=== PATIENT | female | born 1925 | race Caucasian/White ===

== ENCOUNTER 2016-10-21 21:37 | Observation (INO) | payer OTHER ==
--- NOTE | ~2016-10-21 | HP ---
Unit #: [id number] #: [id number] Patient: VIKY EVERETT [id number] [address] [address] [id number] I MR#: [id number] NAME: VIKY EVERETT. ROOM: 79098 Age: 89 Sex: F Admission Date: 10/22/2016 : 1925 Attending Physician: Amelia Plunkett M.D. Primary Care Physician: No Primary Care Physician HISTORY AND PHYSICAL CHIEF COMPLAINT Right inferior and superior pubic ramus fracture, following a fall. HISTORY This barb 89-year-old female with hypertension, AODM, some memory loss, is admitted for a right pelvic fracture. The patient states that she was sleeping on the cough, got up and remembers falling but does not really remember what occurred. She was able to call he daughter I believe, and she was brought to this emergency department late last evening. X-rays demonstrate a right superior and inferior pubic ramus fracture. The patient was able to stand but was unable to bear weight, right leg secondary to severe pain. PAST MEDICAL HISTORY 1. Hypertension. 2. AODM. 3. Hyperlipidemia. 4. Dementia. 5. Cholecystectomy. 6. Possible cervical laminectomy. ALLERGIES Tetanus vaccine. HOME MEDICATIONS Januvia 100 mg daily; HCTZ 12.5 mg daily; Lipitor 40 mg daily; glipizide ER 10 mg daily; metformin 500 mg b.i.d.; olmesartan 20 mg daily; Welchol 625 mg b.i.d. FAMILY HISTORY Noncontributory given patient's age. SOCIAL HISTORY The patient lives alone, her 4 or 5 months ago. She is a lifelong nonsmoker. Does not drink alcohol. REVIEW OF SYSTEMS Notable for hypertension, diabetes, hyperlipidemia, above mentioned surgeries, fall, pain in the back with movement of the right hip. All other systems were reviewed and are negative. Patient does have memory loss. PHYSICAL EXAMINATION Unit #: [id number] #: [id number] Patient: IVKY EVERETT GENERAL: Barb 89-year-old female, currently in no acute distress. VITAL SIGNS: Temperature 98, pulse 78, respirations 16, blood pressure 171/52, O2 saturation is 98% on room air. HEENT: Eyes - PERRLA, extraocular muscles are intact. Pharynx is benign. NECK: Supple without adenopathy or thyromegaly. CHEST: Clear. CARDIAC: Normal S1 and S2 without S3, S4, or murmur. ABDOMEN: Bowel sounds are present. No hepatosplenomegaly, tenderness or masses. EXTREMITIES: Without clubbing, cyanosis or edema. Pedal pulses are present. Movement of the right hip causes back pain. NEUROLOGIC: Patient is awake, alert and oriented to person and place but does not know the year or date. Cranial nerves are intact. Equal strength throughout. DIAGNOSTIC STUDIES LABS: None are yet drawn. IMAGING STUDIES: C-spine x-ray - advanced DJD. CT of the brain - mild atrophy. Small vessel ischemic disease but nothing acute. Plain x-rays of the hip and femur show right superior and inferior pubic ramus fracture. ASSESSMENT 1. Fall with right inferior and superior pubic ramus fracture, unable to ambulate. 2. AODM. 3. Hypertension. 4. Dementia. 5. Hyperlipidemia. PLANS 1. Check labs, EKG, and urinalysis. 2. IV fluids and supportive treatment. 3. DVT prophylaxis. 4. Social work to consult for prison placement with rehab. 5. Orthopedic surgery to consult. Dictated by Amelia Plunkett M.D. AML/ts TD: 10/22/2016 05:06 JOB #: [id number] CC: Denise Palma M.D. Unit #: [id number] #: [id number] Patient: VIKY EVERETT HISTORY AND PHYSICAL X Amelia Plunkett MD X HISTORY AND PHYSICAL
--- NOTE | ~2016-10-21 | CR107 ---
[facility] A Service of [facility] RADIOLOGY TEXT RESULTS PATIENT: VIKY EVERETT LOCATION: [facility] [address] : [birth year] UNIT #: [id number] AGE: [address]: Nabor Virgen MD SEX: F ORDER DR: [id number] [facility] [address] [facility]. [place], [place] [address] [id number] I MR#: [id number] Acc #: [id number] NAME: VIKY EVERETT. : 1925 SEX: F STUDY DATE/TIME: 10/21/2016 21:26 UNIT: CED ROOM: 77334 STUDY DESCRIPTION: CR Femur 2 Views Rt Attending Physician: Nabor Virgen M.D. Ordering Physician: Roger Upton Aprn Primary Care Physician: Primary Care Physician No MEDICAL IMAGING REPORT This report is preliminary unless electronic signature is present EXAM Right femur HISTORY Femur pain since 10/21/2016 1830 hours. FINDINGS Standard views of the right femur demonstrate no femoral fracture. Minimal degenerative changes right hip. Visualized pelvis suggests a right superior pubic ramus fracture. Please see separate pelvic films for additional details. Soft tissues demonstrate extensive arterial vascular calcifications. Mild degenerative changes noted within the right knee. Dictated by... Henna Gillespie M.D. THIS IS AN ELECTRONICALLY VERIFIED REPORT Henna Gillespie M.D. at 10/22/2016 6:33 PM LORENA/cecilia TD: 10/22/2016 10:16 JOB #: [id number] MEDICAL IMAGING REPORT COPY
--- NOTE | ~2016-10-21 | CT71 ---
[facility] A Service of [facility] RADIOLOGY TEXT RESULTS PATIENT: VIKY EVERETT LOCATION: [facility] [address] : [birth year] UNIT #: [id number] AGE: [address]: Nabor Virgen MD SEX: F ORDER DR: [id number] [place] [id number] [facility]. [place], [place] [address] [id number] I MR#: [id number] Acc #: [id number] NAME: VIKY EVERETT. : 1925 SEX: F STUDY DATE/TIME: 10/21/2016 21:37 UNIT: CEDOF ROOM: 36102 STUDY DESCRIPTION: CT Head Wo Contrast Attending Physician: Nabor Virgen M.D. Ordering Physician: Roger Upton Aprn Primary Care Physician: Primary Care Physician No MEDICAL IMAGING REPORT This report is preliminary unless electronic signature is present EXAM CT head without contrast, 10/21/2016 HISTORY 89-year-old female with head pain status post fall today. Memory loss. COMPARISON CT head, 07/18/2010 TECHNIQUE Routine unenhanced axial images performed through the brain. This CT exam was performed with one or more of the following radiation dose reduction techniques: automatic exposure control, adjustment of mA and/or kV according to patient size, and iterative reconstruction. FINDINGS No hemorrhage, acute infarction, mass lesion, or abnormal extraaxial fluid collection. No midline shift or focal mass effect. Ventricular system normal in size and configuration. Mild generalized atrophy. Mild chronic small vessel disease is unchanged. No acute bony abnormality. Visualized paranasal sinuses and mastoid air cells are clear. IMPRESSION 1. No acute intracranial abnormality. 2. Mild age-related atrophy and chronic small vessel disease, stable. Dictated by... Graham Ledbetter M.D. THIS IS AN ELECTRONICALLY VERIFIED REPORT Graham Ledbetter M.D. at 10/22/2016 6:49 PM BOBBY/lady [facility] A Service of [facility] RADIOLOGY TEXT RESULTS PATIENT: VIKY EVERETT LOCATION: [facility] [address] : [birth year] UNIT #: [id number] AGE: [address]: Nabor Virgen MD SEX: F ORDER DR: TD: 10/22/2016 10:00 JOB #: [id number] MEDICAL IMAGING REPORT COPY
--- NOTE | ~2016-10-21 | EKG ---
PATIENT: VIKY EVERETT UNIT #: [id number] Ventricular Rate: 88 BPM Atrial Rate: 88 BPM P-R Interval: 228 ms QRS Duration: 94 ms Q-T Interval: 376 ms QTC Calculation(Bezet): 454 ms P Nunnelly: 85 degrees Calculated R Nunnelly: -21 degrees Calculated T Nunnelly: 69 degrees Diagnosis Line: Sinus rhythm with 1st degree A-V block Diagnosis Line: Nonspecific T wave abnormality Diagnosis Line: Abnormal ECG Diagnosis Line: When compared with ECG of 22-MAR-2011 22:52, Diagnosis Line: Nonspecific T wave abnormality now evident in Diagnosis Line: Inferior leads Diagnosis Line: Confirmed by KESHIA BAUER MD ([id number]) on Diagnosis Line: 10/23/2016 11:23:23 AM INTERPRETING MD: JUANCARLOS FINLEY
--- NOTE | ~2016-10-21 | CT52 ---
[facility] A Service of [facility] RADIOLOGY TEXT RESULTS PATIENT: VIKY EVERETT LOCATION: [facility] [address] : [birth year] UNIT #: [id number] AGE: [address]: Nabor Virgen MD SEX: F ORDER DR: [id number] [facility] [address] [facility]. [place], [place] [address] [id number] I MR#: [id number] Acc #: [id number] NAME: VIKY EVERETT. : 1925 SEX: F STUDY DATE/TIME: 10/21/2016 21:44 UNIT: CEDOF ROOM: 48712 STUDY DESCRIPTION: CT Cervical Spine Wo Cont Attending Physician: Nabor Virgen M.D. Ordering Physician: Roger Upton Aprn Primary Care Physician: Primary Care Physician No MEDICAL IMAGING REPORT This report is preliminary unless electronic signature is present EXAM CT cervical spine without contrast, 10/21/2016 HISTORY 89-year-old female with neck pain status post fall today. COMPARISON None TECHNIQUE Helical scan performed through the cervical spine without IV contrast. Coronal and sagittal reformatted images. This CT exam was performed with one or more of the following radiation dose reduction techniques: automatic exposure control, adjustment of mA and/or kV according to patient size, and iterative reconstruction. FINDINGS No evidence of acute fracture or subluxation. Vertebral body heights and alignment are normally maintained. Prevertebral soft tissues are normal. Atlantoaxial relationship is normal. Cervicothoracic junction is unremarkable. There are advanced multilevel discogenic degenerative changes producing mild central canal stenosis at multiple levels. There is moderate multilevel facet degeneration. There is degenerative callus formation noted around the dens. Paravertebral soft tissues are unremarkable. Incidental scanning through the lung apices is unremarkable. IMPRESSION 1. No acute cervical spine injury. 2. Advanced multilevel degenerative changes, detailed above. Dictated by... [facility] A Service of [facility] RADIOLOGY TEXT RESULTS PATIENT: VIKY EVERETT LOCATION: [facility] [address] : [birth year] UNIT #: [id number] AGE: [address]: Nabor Virgen MD SEX: F ORDER DR: Graham Ledbetter M.D. THIS IS AN ELECTRONICALLY VERIFIED REPORT Graham Ledbetter M.D. at 10/22/2016 6:49 PM BOBBY/lady TD: 10/22/2016 10:04 JOB #: [id number] MEDICAL IMAGING REPORT COPY
--- NOTE | ~2016-10-21 | DS ---
Unit #: [id number] #: [id number] Patient: VIKY EVERETT [id number] [address] [address] [id number] I MR#: [id number] NAME: VIKY EVERETT. ROOM: [facility] Age: 89 Sex: F Admission Date: 10/22/2016 : 1925 Discharge Date: 10/24/2016 Attending Physician: Nabor Virgen M.D. Primary Care Physician: No Primary Care Physician DISCHARGE SUMMARY DIAGNOSIS ON ADMISSION Pelvic fracture. DIAGNOSES ON DISCHARGE 1. Right superior and inferior pubic ramus fracture. 2. Acute urinary tract infection. 3. Dementia. 4. Hyperlipidemia. 5. Type 2 diabetes mellitus. 6. Hypertension. 7. Acute Escherichia coli urinary tract infection. DIAGNOSTIC STUDIES LABS: The patient's creatinine is 1, sodium 135, potassium 4.2. WBC is 10.7, hemoglobin 10.9, platelet count 194. Urine culture revealed E-coli greater than 1,000 colonies. IMAGING: The patient had a CT scan of head done, which did not reveal any acute intracranial abnormality. The patient had a CT scan of cervical spine done, which did not reveal any acute cervical spine injury. The patient had a right femur x-ray done, which did not reveal any femur fracture. There was minimal degenerative change of right hip present. The patient had a right hip x-ray done, which revealed superior and inferior pubic ramus fracture. HOSPITAL COURSE This 89-year-old patient was admitted to [facility] with a fall. Details are as per admission H and P. Pubic ramus, right pelvic fracture. The patient was seen by ortho in consultation. Advised to follow up on an outpatient basis in 4 weeks. Acute urinary tract infection. The patient was treated with antibiotics and doing much better. Acute toxic metabolic encephalopathy. The patient's confusion is much better now. It was secondary to acute UTI and fall. PHYSICAL EXAMINATION GENERAL: Today, the patient is comfortable, is not in any acute distress. Unit #: [id number] #: [id number] Patient: VIKY EVERETT She wants to go home. VITAL SIGNS: Vital signs reveal temperature of 99.3, pulse 98 per minute, respiratory rate 16 per minute, blood pressure 153/59. HEENT: Examination revealed no conjunctival congestion. Sclera is nonicteric. NECK: Neck is supple. Trachea is central. RESPIRATORY: Examination revealed decreased breath sounds bilaterally. There are no wheezes or crackles. HEART: Regular rate and rhythm. S1, S2. ABDOMEN: Abdomen is soft, nontender. Bowel sounds are present in all 4 quadrants. NEUROLOGIC: Strength is 4+ bilaterally. PSYCHIATRIC: The patient is alert to person and place only. SKIN: Skin is warm and dry. CONDITION Stable. ACTIVITIES As tolerated. DISCHARGE MEDICATIONS 1. Benicar 20 mg p.o. daily. 2. Januvia 100 mg p.o. daily. 3. Welchol 625 mg p.o. b.i.d. 4. Colace 100 mg p.o. b.i.d. 5. Milk of Magnesia p.r.n. constipation. 6. MiraLAX 17 grams p.o. daily. 7. Lipitor 40 mg p.o. daily. 8. Insulin sliding scale as per facility. 9. Hydrocodone 5 mg, 1/2 tablet p.o. q.6 hours p.r.n. (A script was written.) 10. Glipizide 10 mg daily p.o. before breakfast. 11. Keflex 500 mg p.o. b.i.d. for 1 week. 12. I have discontinued the patient's metformin. DISPOSITION The patient will be transferred to rehab facility. FOLLOWUP The patient should follow up with Dr. Hughes in 4 weeks. NOTE: The plan has been discussed in detail with the patient's family. Dictated by... Saadia Duffy TD: 10/24/2016 11:20 JOB #: [id number] CC: Mercedes Henry M.D. Unit #: [id number] #: [id number] Patient: VIKY EVERETT DISCHARGE SUMMARY X Nabor Virgen MD X DISCHARGE SUMMARY
--- NOTE | ~2016-10-21 | CR151 ---
[facility] A Service of [facility] RADIOLOGY TEXT RESULTS PATIENT: VIKY EVERETT LOCATION: [place] [address] : [birth year] UNIT #: [id number] AGE: [address]: Nabor Virgen MD SEX: F ORDER DR: [id number] [facility] [address] [facility]. [place], [place] [address] [id number] I MR#: [id number] Acc #: [id number] NAME: VIKY EVERETT. : 1925 SEX: F STUDY DATE/TIME: 10/21/2016 21:26 UNIT: CEDOF ROOM: 63105 STUDY DESCRIPTION: CR Hip Min 2 Views Rt Attending Physician: Nabor Virgen M.D. Ordering Physician: Roger Upton Aprn Primary Care Physician: Primary Care Physician No MEDICAL IMAGING REPORT This report is preliminary unless electronic signature is present EXAM Right hip and pelvis HISTORY Right hip and femur pain, onset 10/21/2016 at 1830 hours. FINDINGS AP pelvis and frog lateral view of the right hip demonstrates right superior pubic ramus fracture minimally-displaced as well as right inferior pubic ramus fracture. Mild arthritic changes in both hips. There is advanced degenerative disc disease and scoliosis lumbar spine. Soft tissues unremarkable. Dictated by... Henna Gillespie M.D. THIS IS AN ELECTRONICALLY VERIFIED REPORT Henna Gillespie M.D. at 10/22/2016 6:33 PM LORENA/cecilia TD: 10/22/2016 09:55 JOB #: [id number] MEDICAL IMAGING REPORT COPY
--- NOTE | ~2016-10-21 | CO ---
Unit #: [id number] #: [id number] Patient: VIKY EVERETT [id number] [address] [address] [id number] I MR#: [id number] NAME: VIKY EVERETT. ROOM: 473 Age: 89 Sex: F Admission Date: 10/22/2016 : 1925 Attending Physician: Nabor Virgen M.D. Primary Care Physician: No Primary Care Physician CONSULTATION REPORT REQUESTING PHYSICIAN Dr. Plunkett HISTORY The patient is an 89-year-old lady who lives alone at home. She fell last night, did not have a loss of consciousness and doesn't remember tripping over anything but simply fell sustaining a right pelvis fracture. We have been asked to see her for her pelvic fracture. PAST MEDICAL HISTORY Reveals that she does, surgically, have a history of gallbladder and hysterectomy. The hysterectomy was done for cervical cancer. She is a type 2 diabetic and has hypertension. ALLERGIES Her only allergies are tetanus. MEDICATIONS Her home medications include: 1. Januvia 100 mg a day. 2. Hydrochlorothiazide 12.5. 3. Lipitor 40. 4. Glipizide extended release 10 mg. 5. Metformin 500. 6. Olmesartan 20 mg. 7. Welchol 625 b.i.d. SOCIAL HISTORY She lives at home alone. She denies the use of tobacco or alcohol. REVIEW OF SYSTEMS Reveals that she denies headaches or blurred vision. No neck pain. She denies chest pain or shortness of breath. She denies a recurrent cough. No hemoptysis or productive sputum. She denies nausea, vomiting, diarrhea. No burning on urination or blood in the urine. Her only orthopedic complaint today is her right hip and pelvis. Neurologically, she denies any numbness or tingling in her lower extremities or her hands. DIAGNOSTIC STUDIES IMAGING: Her x-rays are reviewed and shows a superior and inferior pubic ramus fracture on the right side, minimally displaced. Right hip has mild arthritis but no fracture. IMPRESSION Unit #: [id number] #: [id number] Patient: VIKY EVERETT She has an acute pelvis fracture. The plan will be for admission, gradual mobilization with physical therapy and then rehab since she lives at home alone. Dictated by... Saadia Downs/kael TD: 10/24/2016 09:01 JOB #: [id number] CONSULTATION REPORT X Panchito Hughes MD X CONSULTATION REPORT
[~2016-10-21 21:37] MED LIST: B COMPLEX/FOLIC1 TAB PO; CATAPRES-TTS-20.2 MG PO; CITRACAL200 MG; FLONASE16 GM; GLUCOTROL PO; LIPITOR20 MG PO; LISINOPRIL PO; LOSARTAN-HCTZ1 EAC2 PO; MOBIC PO; VIT E PO; VITAMIN C PO; VYTORIN PO; ZYRTEC PO
[2016-10-21] MEDS ORDERED: LIPITOR40 MG PO (23:08)
[2016-10-21] MEDS ORDERED: HYDROCHLOROTH12.5 MG PO (23:08)
[2016-10-21] MEDS ORDERED: JANUVIA PO (23:08)
[2016-10-21] MEDS ORDERED: GLUCOTROL PO (23:09)
[2016-10-21] MEDS ORDERED: OLMESARTAN-HCT1 EACH PO (23:10)
[2016-10-21] MEDS ORDERED: METFORMIN HCL500 M3 PO (23:10)
[2016-10-21] MEDS ORDERED: WELCHOL625 M1 PO (23:11)
[2016-10-22 02:21] LABS: BASOPHIL% 0.3 % (0-2.5); EOSINOPHIL% 0.1 % (0.0-7.0); HEMATOCRIT 32.3 % (35.0-45.0); HEMOGLOBIN 10.9 gm/dL (12.0-16.0); LYMPHOCYTE# 1.7 X10e3 (1.0-3.5); MEAN CELL VOLUME 87.6 FL (83-96); MEAN CORPUSCULAR HEMOGLOBIN 29.7 PG (28-34); MEAN CORPUSCULAR HGB CONC 33.9 g/dL (30-36); MEAN PLATELET VOLUME 8.7 FL (6.5-11.5); MONOCYTE# 0.8 X10e3 (0-1.0); MONOCYTE% 7.3 % (3.0-12.0); NEUTROPHIL# 8.2 X10e3 (1.5-7.1); NEUTROPHIL% 76.3 % (40-75); PLATELET COUNT 194 X10e3 (140-420); RED BLOOD COUNT 3.69 X10e (3.90-5.30); RED CELL DISTRIBUTION WIDTH 13.4 % (11.0-15.5); WHITE BLOOD COUNT 10.7 X10e3 (4.0-10.5)
[2016-10-22 02:23] LABS: DIFF IND NO
[2016-10-22 02:42] LABS: ALBUMIN SERUM 3.7 g/dL (3.5-5.0); BILIRUBIN,TOTAL 0.7 mg/dL (0.2-2.0); CALCIUM SERUM 8.8 mg/dL (8.4-10.2); GLOM FILT RATE Estimated 55.5 mL/min (>60); POTASSIUM 4.2 mmol/L (3.5-5.1); PROTEIN TOTAL SERUM 6.4 g/dL (6.0-8.3)
[2016-10-22 04:19] LABS: URINE SOURCE CLEAN CATCH
[2016-10-22 04:23] LABS: URINE APPEARANCE CLEAR; URINE BILIRUBIN NEG (NEG); URINE BLOOD NEG (NEG); URINE COLOR YELLOW; URINE GLUCOSE 100 MG/DL (NEG); URINE KETONE NEG (NEG); URINE LEUKOCYTE ESTERASE TRACE (NEG); URINE NITRATE NEG (NEG); URINE PROTEIN NEG (NEG); URINE SPECIFIC GRAVITY 1.022 (1.003-1.035); URINE UROBILINOGEN 0.2 MG/DL (NEG)
[2016-10-22 04:24] LABS: CULTURE INDICATED? YES; U HYALINE CASTS AUWI 0-2 /[LPF]; URBCS1 AUWI 0-2 /[HPF] (0-2); URINE BACTERIA AUWI 1+ (NEGATIVE); URINE SQUAMOUS EPITHELIAL CELL NONE SEEN /[HPF]; UWBCS1 AUWI 0-2 (0-5)
== END 2016-10-24 16:40 ==
LOC: CED 21:37 → CEDOF 10-22 00:30 → C4C 10-22 14:25
PROVIDERS: Internal Medicine
DX: S32.591A Other specified fracture of right pubis, initial encounter for closed fracture (principal); W18.39XA Other fall on same level, initial encounter; F03.90 Unspecified dementia, unspecified severity, without behavioral disturbance, psychotic disturbance, mood disturbance, and anxiety; E78.5 Hyperlipidemia, unspecified; E11.9 Type 2 diabetes mellitus without complications; I10 Essential (primary) hypertension; N39.0 Urinary tract infection, site not specified; B96.20 Unspecified Escherichia coli [E. coli] as the cause of diseases classified elsewhere; Z79.84 Long term (current) use of oral hypoglycemic drugs; M47.892 Other spondylosis, cervical region; G31.9 Degenerative disease of nervous system, unspecified; Z90.710 Acquired absence of both cervix and uterus
CPT/HCPCS: 51702; 70450; 72125; 73502; 73552; 80053; 81003; 82947; 85025; 87086; 87088; 87186; 93005; 96372; 96374; 96376; 97162; 97530; 97535; 99285; G0378; G8978-GP; G8979-GP; J0696; J1650; J1815